=== PATIENT | female | born 2000 | race Caucasian/White ===

== ENCOUNTER 2019-11-27 20:58 | Observation (INO) | payer OTHER ==
[~2019-11-27] VITALS: Ht 160 cm; Wt 81.0 kg
--- NOTE | 2019-11-27 21:14 | PHYS DOC ---
Past Medical History Past Medical History: Anemia, Anxiety, Asthma, Depression Additional Past Medical Histor: seasonal allergies (GERALDO EDMONDS REAL ESTATE INVESTMENT ANALYST) Additional Past Surgical Histo: wisdom teeth removed (GERALDO EDMONDS REAL ESTATE INVESTMENT ANALYST) Smoking Status: Never Smoker Alcohol Use: None Drug Use: None (GERALDO EDMONDS APRN) General Adult EDM: Chief Complaint: MECHANICAL FALL HPI: HPI: Patient is a 19 year old female who arrives via EMS after being bucked off of a horse just prior to arrival. The patient states that when the horse bucked her forehead hit the back of the horse and she flew off the back of the horse. When she landed she struck the back of her head on the ground, she was not wearing a helmet. She denies any LOC. Pt states initially she was seeing black spots in both of her eyes, her nose also bled for a short period of time. She denies any nasal pain. Currently, she reports seeing spots in her left eye, headache, neck pain, low back pain, and left hip pain. Patient is vomiting on arrival and complains of nausea. She currently rates her pain a 10/10 on the pain scale and reports it is most severe in her left hip. She denies any shortness of breath, wheezing, or cough. She states that her chest hurts with inspiration. She denies abdominal pain, upper extremity pain, numbness, tingling, or weakness. Patient denies any loss of bowel or bladder control. She reports that she takes continuous control and has not had a menstrual cycle in over 4 months. EMS states that they gave the patient 4 mg of Zofran and 100 mcg of fentanyl while in route to the emergency department. (GERALDO EDMONDS REAL ESTATE INVESTMENT ANALYST) Review of Systems: Review of Systems: Constitutional: Denies fever or chills. [] Eyes: see HPI HENT: Denies nasal congestion or sore throat, see HPI [] Respiratory: Denies cough or shortness of breath. [] Cardiovascular: Denies palpitations or edema; see HPI GI: Denies abdominal pain, or diarrhea; see HPI : Denies dysuria. [] Musculoskeletal: see HPI Integument: Denies rash. [] Neurologic: See HPI Endocrine: Denies polyuria or polydipsia. [] Lymphatic: Denies swollen glands. [] Psychiatric: Denies depression or anxiety. [] (GERALDO EDMONDS APRN) Heart Score: Risk Factors: Risk Factors: DM, Current or recent (<one month) smoker, HTN, HLP, family history of CAD, obesity. Risk Scores: Score 0 - 3: 2.5% MACE over next 6 weeks - Discharge Home Score 4 - 6: 20.3% MACE over next 6 weeks - Admit for Clinical Observation Score 7 - 10: 72.7% MACE over next 6 weeks - Early Invasive Strategies (GERALDO EDMONDS APRN) Current Medications: Current Medications Medications (Trade) Dose Ordered Sig/Desiree Start Time Stop Time Status Last Admin Dose Admin Fentanyl Citrate (Fentanyl 2ml Vial) 50 mcg 1X ONCE 11/27/19 21:15 11/27/19 21:16 UNV Ondansetron HCl (Zofran) 4 mg 1X ONCE 11/27/19 21:15 11/27/19 21:16 UNV Sodium Chloride 1,000 ml @ 1,000 mls/hr 1X ONCE 11/27/19 21:15 11/27/19 22:14 UNV (GERALDO EDMONDS REAL ESTATE INVESTMENT ANALYST) Physical Exam: PE: Constitutional: Well developed, well nourished, moderate distress, non-toxic appearance. [] HENT: Normocephalic, atraumatic, bilateral external ears normal, left TM normal, oropharynx moist, no oral exudates, scant amount of blood present in the right nare without active bleeding, no obvious nasal deformity or swelling Eyes: PERRLA, EOMI, conjunctiva normal, no discharge, no nystagmus. [] Neck: Range of motion deferred; cervical spine tenderness to palpation, no obvious deformity or crepitus patient in a c-collar, no stridor. [] Cardiovascular:Heart rate regular rhythm, no murmur [] Lungs & Thorax: Bilateral breath sounds clear to auscultation, respirations even and unlabored, no retractions, no respiratory distress Abdomen: Bowel sounds normal, soft, no tenderness, no masses, no pulsatile masses. [] Skin: Warm, dry, no erythema, no rash. [] Back: Upper thoracic and diffuse lumbar bony tenderness to palpation without crepitus, step-off, or obvious deformity Extremities: Lower left extremity: Shortening with external rotation, 2+ pedal pulses, tenderness to palpation of left hip; no cyanosis, no clubbing Neurologic: Alert and oriented X 3, normal motor function, normal sensory function, no focal deficits noted. [] Psychologic: Affect normal, judgement normal, mood normal. [] (GERALDO EDMONDS APRN) PE: Constitutional: Well developed, well nourished, anxious HENT: Normocephalic, atraumatic Eyes: Conjunctiva normal, no discharge Neck: Supple Cardiovascular: Heart rate normal, regular rhythm Lungs & Thorax: No respiratory distress, equal chest rise and fall Skin: Warm, dry, no erythema, no rash Extremities: No tenderness, ROM intact, no edema Neurologic: Alert and oriented X 3, no focal deficits noted Psychologic: Affect anxious, judgment normal (ALTON WILDER DO) EKG: EKG: [] (GERALDO EDMONDS APRN) Radiology/Procedures: Radiology/Procedures: PROCEDURE: CT CHEST ABDOMEN PELVIS WO CT THORACIC SPINE RECONSTRUCT, CT CHEST ABDOMEN PELVIS WO, CT LUMBAR SPINE RECONSTRUCTION INDICATION: Reason: pain, chest, L hip pain after bucked off a horse / Spl. Instructions: / History: COMPARISON: None. TECHNIQUE: Multiple contiguous axial images were obtained throughout the chest, abdomen, and pelvis without the use of IV contrast. Axial images were reformatted into coronal and sagittal planes. Dedicated multiplanar reconstructions of the thoracic and lumbar spine were also obtained. One or more of the following dose reduction techniques were utilized: Automated exposure control (AEC), Adjustment of mA and/or kV according to patient size, Use of iterative reconstruction technique such as ASiR, CT scan done according to ALARA and image gently/image wisely. FINDINGS: The thyroid is symmetric. There is no axillary, mediastinal, or hilar adenopathy, although evaluation of the rachna is limited without IV contrast. Residual thymic tissue. The thoracic aorta diameter is normal. The cardiac size is normal. There is no pericardial effusion. The central airways are patent. Lungs are clear. No pleural abnormality. Evaluation of solid abdominal viscera is limited without the use of IV contrast. However, the liver, gallbladder, spleen, pancreas, and adrenal glands are unremarkable. The kidneys are unremarkable. There is no significant mesenteric or retroperitoneal adenopathy identified, though evaluation is limited without intravenous contrast. There is no evidence of free intraperitoneal fluid or pneumoperitoneum. Visualized portions of the bowel are grossly unremarkable. Urinary bladder is well-distended. Uterus is present. There is no significant pelvic ascites. No significant iliac or inguinal adenopathy is identified. No acute osseous abnormality. IMPRESSION: 1. No evidence of major acute thoracic injury. No abdominal solid organ injury. 2. No acute thoracic or lumbar spine fracture. No acute pelvic fracture. PROCEDURE: CT HEAD AND CERVICAL SPINE WO CT HEAD AND CERVICAL SPINE WO Date: 11/27/2019 10:06 PM Clinical Indication: pain after bucked off a horse Comparison: None. Technique: 5 mm axial tomographic images were obtained of the head without contrast. These were viewed on brain and bone windows. CT imaging of the cervical spine was performed without contrast. Coronal and sagittal reformatted images were performed. One or more of the following dose reduction techniques were utilized: Automated exposure control (AEC), Adjustment of mA and/or kV according to patient size, Use of iterative reconstruction technique such as ASiR, CT scan done according to ALARA and image gently/image wisely HEAD FINDINGS: The brain parenchyma is normal in attenuation. No intra- or extra-axial mass or fluid collection. No acute hemorrhage. The ventricles are normal in size, shape, and morphology. The gil-white matter junction is normal. The basilar cisterns are patent. The visualized paranasal sinuses are normal. The visualized portions of the orbits and globes are normal. The mastoid air cells are clear. No aggressive osseous lesion or fracture. CERVICAL SPINE FINDINGS: The cervical spine is normally aligned. No acute fracture. No aggressive lytic or blastic osseous lesion. The intervertebral disc heights are maintained. No high-grade spinal canal stenosis or neural foraminal narrowing. The thyroid gland is normal. No cervical lymphadenopathy. The visualized aerodigestive tract is unremarkable. The visualized lung apices are clear. IMPRESSION: 1. No acute intracranial process. 2. No acute osseous abnormality of the cervical spine. [] (GERALDO EDMONDS APRN) Course & Med Decision Making: Course & Med Decision Making Pertinent Labs and Imaging studies reviewed. (See chart for details) [id number]-we will admit this patient to Dr. Hull for closed head injury, int ractable nausea and vomiting, hematuria, and fall from horse. Dr. Wilder will inform Dr. Hull of the need for admission with morning report. Patient's vital signs stable. Patient remains afebrile, appears nontoxic, respirations even and unlabored. Patient will be admitted to the telemetry floor. [] (GERALDO EDMONDS APRN) Dragon Disclaimer: Dragon Disclaimer: This electronic medical record was generated, in whole or in part, using a voice recognition dictation system. (GERALDO EDMONDS APRN) Departure Departure Impression: Primary Impression: Head injury Qualified Codes: S09.90XA - Unspecified injury of head, initial encounter Additional Impressions: Hematuria Qualified Codes: R31.9 - Hematuria, unspecified Intractable nausea and vomiting Fall from horse Qualified Codes: V80.010A - Animal-rider injured by fall from or being thrown from horse in noncollision accident, initial encounter Tachycardia Disposition: ADMITTED INPATIENT Admitting Physician: MYLENE benitez) (GERALDO EDMONDS APRN) Condition: STABLE Referrals: NO PCP (PCP) Justicifation of Admission Dx: Justifications for Admission: Justification of Admission Dx: Yes Comments: trauma alert, kicked off horse, head injury, intractable n/v, hematuria (GERALDO EDMONDS APRN) Attending Signature Attending Signature I have personally interviewed and examined the patient. All charts, labs, and imaging studies were reviewed. I agree with the PA/CABLE TOWER OPERATOR's findings, exam, and plan. (ALTON WILDER DO) GERALDO EDMONDS APRN Nov 27, 2019 21:14 ALTON WILDER DO Nov 28, 2019 02:57
[2019-11-27] MEDS ORDERED: ONDANSETRON PF 4 MG/2 ML VIAL. IV ONE (21:15)
[2019-11-27] MEDS ORDERED: IV NORMAL SALINE 1000ML BAG 1,000 ML IV ONE (21:15)
[2019-11-27] MEDS ORDERED: fentaNYL PF VIAL 100 MCG/2 ML VIAL IV ONE ×2 (21:15→23:00)
[2019-11-27 21:32] LABS: BASO # 0.1 x10^3/uL (0.0-0.2); BASO % 1 % (0-3); EOS # 0.2 x10^3/uL (0.0-0.7); EOS % 2 % (0-3); HEMATOCRIT 37.7 % (36.0-47.0); HEMOGLOBIN 12.9 g/dL (12.0-15.5); LYMPH % 35 % (24-48); MEAN CORPUSCULAR HEMOGLOBIN 28 pg (25-35); MEAN CORPUSCULAR HGB CONC 34 g/dL (31-37); MEAN CORPUSCULAR VOLUME 83 fL (79-100); MONO % 8 % (0-9); NEUT # 6.2 x10^3/uL (1.8-7.7); NEUT % 54 % (31-73); PLATELET COUNT 409 x10^3/uL (140-400); RED BLOOD COUNT 4.53 x10^6/uL (3.50-5.40); RED CELL DISTRIBUTION WIDTH 13.5 % (11.5-14.5); WHITE BLOOD COUNT 11.5 x10^3/uL (4.0-11.0)
[2019-11-27 21:41] LABS: CALCIUM 8.8 mg/dL (8.5-10.1); CREATININE 1.1 mg/dL (0.6-1.0); GFR 63.3; POTASSIUM 3.9 mmol/L (3.5-5.1); PROTHROMBIN TIME PATIENT 12.5 SEC (11.7-14.0)
[2019-11-27 21:47] LABS: ALBUMIN 3.1 g/dL (3.4-5.0); ALBUMIN/GLOBULIN RATIO 0.8 (1.0-1.7); TOTAL BILIRUBIN 0.4 mg/dL (0.2-1.0); TOTAL PROTEIN 7.2 g/dL (6.4-8.2)
[2019-11-27 21:55] LABS: PREG TEST PT QUAL NEGATIVE (NEG)
--- NOTE | 2019-11-27 22:25 | RAD ---
CT HEAD AND CERVICAL SPINE WO Date: 11/27/2019 10:06 PM Clinical Indication: pain after bucked off a horse Comparison: None. Technique: 5 mm axial tomographic images were obtained of the head without contrast. These were viewed on brain and bone windows. CT imaging of the cervical spine was performed without contrast. Coronal and sagittal reformatted images were performed. One or more of the following dose reduction techniques were utilized: Automated exposure control (AEC), Adjustment of mA and/or kV according to patient size, Use of iterative reconstruction technique such as ASiR, CT scan done according to ALARA and image gently/image wisely HEAD FINDINGS: The brain parenchyma is normal in attenuation. No intra- or extra-axial mass or fluid collection. No acute hemorrhage. The ventricles are normal in size, shape, and morphology. The gil-white matter junction is normal. The basilar cisterns are patent. The visualized paranasal sinuses are normal. The visualized portions of the orbits and globes are normal. The mastoid air cells are clear. No aggressive osseous lesion or fracture. CERVICAL SPINE FINDINGS: The cervical spine is normally aligned. No acute fracture. No aggressive lytic or blastic osseous lesion. The intervertebral disc heights are maintained. No high-grade spinal canal stenosis or neural foraminal narrowing. The thyroid gland is normal. No cervical lymphadenopathy. The visualized aerodigestive tract is unremarkable. The visualized lung apices are clear. IMPRESSION: 1. No acute intracranial process. 2. No acute osseous abnormality of the cervical spine. Electronically signed by: Malachi Celaya MD (11/27/2019 10:23 PM) [id number]
[2019-11-27] MEDS ORDERED: PROCHLORPERAZINE 10 MG/2 ML VIAL. IV ONE (22:30)
--- NOTE | 2019-11-27 22:44 | RAD ---
CT THORACIC SPINE RECONSTRUCT, CT CHEST ABDOMEN PELVIS WO, CT LUMBAR SPINE RECONSTRUCTION INDICATION: Reason: pain, chest, L hip pain after bucked off a horse / Spl. Instructions: / History: COMPARISON: None. TECHNIQUE: Multiple contiguous axial images were obtained throughout the chest, abdomen, and pelvis without the use of IV contrast. Axial images were reformatted into coronal and sagittal planes. Dedicated multiplanar reconstructions of the thoracic and lumbar spine were also obtained. One or more of the following dose reduction techniques were utilized: Automated exposure control (AEC), Adjustment of mA and/or kV according to patient size, Use of iterative reconstruction technique such as ASiR, CT scan done according to ALARA and image gently/image wisely. FINDINGS: The thyroid is symmetric. There is no axillary, mediastinal, or hilar adenopathy, although evaluation of the rachna is limited without IV contrast. Residual thymic tissue. The thoracic aorta diameter is normal. The cardiac size is normal. There is no pericardial effusion. The central airways are patent. Lungs are clear. No pleural abnormality. Evaluation of solid abdominal viscera is limited without the use of IV contrast. However, the liver, gallbladder, spleen, pancreas, and adrenal glands are unremarkable. The kidneys are unremarkable. There is no significant mesenteric or retroperitoneal adenopathy identified, though evaluation is limited without intravenous contrast. There is no evidence of free intraperitoneal fluid or pneumoperitoneum. Visualized portions of the bowel are grossly unremarkable. Urinary bladder is well-distended. Uterus is present. There is no significant pelvic ascites. No significant iliac or inguinal adenopathy is identified. No acute osseous abnormality. IMPRESSION: 1. No evidence of major acute thoracic injury. No abdominal solid organ injury. 2. No acute thoracic or lumbar spine fracture. No acute pelvic fracture. Electronically signed by: Malachi Celaya MD (11/27/2019 10:41 PM) [id number]
[2019-11-27 23:09] LABS: BILIRUBIN,URINE NEGATIVE (NEG); CLARITY,URINE CLEAR; COLOR,URINE YELLOW; NITRITE,URINE NEGATIVE (NEG); PH,URINE 6.5 (<5.0-8.0); PROTEIN,URINE NEGATIVE (NEG-TRACE); UROBILINOGEN,URINE 0.2 mg/dL (0.2 mg/dL)
[2019-11-27 23:17] LABS: BACTERIA,URINE MODERATE /HPF (0-FEW); RBC,URINE 20-40 /HPF (0-2); SQUAMOUS EPITHELIAL CELL,UR MOD /LPF; WBC,URINE >40 /HPF (0-4)
[2019-11-27] MEDS ORDERED: fentaNYL PF VIAL 100 MCG/2 ML VIAL IV PRN (23:30)
[2019-11-27] MEDS ORDERED: ONDANSETRON PF 4 MG/2 ML VIAL. IV PRN (23:30)
[2019-11-27] MEDS ORDERED: IV NORMAL SALINE 500ML BAG 500 ML IV ONE (23:30)
[2019-11-27] MEDS: IV NORMAL SALINE 1000ML BAG 1,000 ML IV SCH (23:45)
[2019-11-28] MEDS ORDERED: IV NORMAL SALINE 1000ML BAG 1,000 ML IV ONE (00:30)
[2019-11-28] MEDS ORDERED: diphenhydrAMINE 50 MG/ML VIAL IVP ONE (00:30)
[2019-11-28] MEDS ORDERED: CITA10TA8 PO (02:13)
[2019-11-28] MEDS ORDERED: NORE1TAB27 PO (02:16)
[2019-11-28] MEDS ORDERED: ALBU2.5V8 IH (02:16)
[2019-11-28] MEDS ORDERED: FLUT9.9S NS (02:16)
[2019-11-28 02:38] VITALS: BP 105/57
[2019-11-28 07:00] VITALS: BP 106/54
[2019-11-28] MEDS: IV NORMAL SALINE 1000ML BAG 1,000 ML IV SCH ×2 (07:45→15:45)
--- NOTE | 2019-11-28 08:29 | PDOC2 ---
[facility] 11/28/19 0829: CONSULT Date of Consult Date of Consult DATE: 11/28/19 TIME: 08:22 Reason for Consult Reason for Consult: trauma, head injury, fall from horse Referring Physician Referring Physician: ER Identification/Chief Complaint Chief Complaint n/v, vision changes, pain Source Source: Chart review, Patient History of Present Illness Reason for Visit: Bucked from horse, thrown foward and hit forehead, then fell back off horse and hit back of head on ground. No helmet. No LOC. Did initially have vision spots and n/v. Currently both have resolved. Main tender spot is left hip area. No further hematuria Past Medical History Pulmonary: Asthma, Bronchitis Psych: Anxiety, Depression, Panic Past Surgical History Past Surgical History: No pertinent history Family History Family History: Other (noncontributory to current illness ) Social History No ALCOHOL: none Drugs: None Lives: with Family Current Problem List Problem List Problems Medical Problems: (1) Fall from horse Status: Acute (2) Head injury Status: Acute (3) Hematuria Status: Acute (4) Intractable nausea and vomiting Status: Acute (5) Tachycardia Status: Acute Current Medications Current Medications Current Medications Sodium Chloride 1,000 ml @ 1,000 mls/hr 1X ONCE IV Last administered on 11/27/19at 21:28; Start 11/27/19 at 21:15; Stop 11/27/19 at 22:14; Status DC Fentanyl Citrate (Fentanyl 2ml Vial) 50 mcg 1X ONCE IV Last administered on 11/27/19at 21:27; Start 11/27/19 at 21:15; Stop 11/27/19 at 21:36; Status DC Ondansetron HCl (Zofran) 4 mg 1X ONCE IV Last administered on 11/27/19at 21:00; Start 11/27/19 at 21:15; Stop 11/27/19 at 21:36; Status DC Prochlorperazine Edisylate (Compazine) 10 mg 1X ONCE IV Last administered on 11/27/19at 22:22; Start 11/27/19 at 22:30; Stop 11/27/19 at 22:31; Status DC Fentanyl Citrate (Fentanyl 2ml Vial) 50 mcg 1X ONCE IV Last administered on 11/27/19at 22:49; Start 11/27/19 at 23:00; Stop 11/27/19 at 23:01; Status DC Sodium Chloride 500 ml @ 500 mls/hr 1X ONCE IV Last administered on 11/27/19at 23:15; Start 11/27/19 at 23:30; Stop 11/28/19 at 00:29; Status DC Ondansetron HCl (Zofran) 4 mg PRN Q8HRS PRN IV NAUSEA/VOMITING 1ST CHOICE; Start 11/27/19 at 23:30; Stop 11/28/19 at 23:29 Fentanyl Citrate (Fentanyl 2ml Vial) 50 mcg PRN Q1HR PRN IV SEVERE PAIN 7-10; Start 11/27/19 at 23:30; Stop 11/28/19 at 23:29 Sodium Chloride 1,000 ml @ 125 mls/hr Q8H IV Last administered on 11/28/19at 07:45; Start 11/27/19 at 23:45; Stop 11/28/19 at 23:44 Lorazepam (Ativan Inj) 0.5 mg 1X ONCE IV Last administered on 11/27/19at 23:45; Start 11/27/19 at 23:45; Stop 11/27/19 at 23:46; Status DC Lorazepam (Ativan Inj) 0.5 mg 1X ONCE IV Last administered on 11/28/19at 00:11; Start 11/27/19 at 23:45; Stop 11/27/19 at 23:46; Status DC Diphenhydramine HCl (Benadryl) 25 mg 1X ONCE IVP Last administered on 11/28/19at 00:33; Start 11/28/19 at 00:30; Stop 11/28/19 at 00:31; Status DC Sodium Chloride 1,000 ml @ 1,000 mls/hr 1X ONCE IV ; Start 11/28/19 at 00:30; Stop 11/28/19 at 00:25; Status DC Active Scripts Active Reported Proair Hfa Inhaler (Albuterol Sulfate) 8.5 Gm Hfa.aer.ad 2 Puff IH PRN Q4-6HRS PRN 21 Days Flonase Allergy Relief (Fluticasone Propionate) 9.9 Ml [place].susp 2 Sprays NS DAILY Junel Fe 1 Mg-20 Mcg Tablet (Noreth A-Et Estra/Fe Fumarate) 1 Each Tablet 1 Tab PO DAILY Celexa (Citalopram Hydrobromide) 10 Mg Tablet 10 Mg PO DAILY Allergies Allergies: Coded Allergies: iodine (Verified Allergy, Severe, 11/27/19) shellfish derived (Verified Allergy, Severe, 11/27/19) aripiprazole (Verified Allergy, Intermediate, 11/27/19) ROS General: YES: Fatigue; No: Chills, Other (fevers ) PSYCHOLOGICAL ROS: No: Anxiety, Depression Eyes: No Blurry vision, No Double vision, No Photophobia HEENT: No: Heacaches, Hearing change, Sore Throat Hematological and Lymphatic: YES: Blood Clots; No: Bleeding Problems Respiratory: No: Cough, Shortness of breath Cardiovascular: No Chest Pain, No Palpitations Gastrointestinal: No Nausea, No Vomiting, No Abdominal Pain Genitourinary: No Dysuria, No Hematuria Musculoskeletal: Yes Joint Pain (left hip) Neurological: No Impaired Coord/balance, No Numbness/Tingling Skin: Yes Other (scrapes to arm left ); No Pruritus Physical Exam General: Alert, Oriented X3, Cooperative HEENT: Atraumatic, PERRLA, EOMI, Mucous membr. moist/pink Lungs: Clear to auscultation, Normal air movement Heart: Normal S1, Normal S2, Other (tachy) Abdomen: Soft, No tenderness, No masses Extremities: No clubbing, No cyanosis, Normal pulses Skin: Other (rash from fall to left arm) Neuro: Normal speech, Strength at 5/5 X4 ext, Normal tone, Sensation intact Psych/Mental Status: Mental status NL, Mood NL MUSCULOSKELETAL: No deformity, Other (left hip tenderness) Vitals VITALS Vital Signs Date Time Temp Pulse Resp B/P (MAP) Pulse Ox O2 Delivery O2 Flow Rate FiO2 11/28/19 07:00 98.5 111 16 106/54 (71) 99 Room Air 98.5 Labs Labs Laboratory Tests Test 11/27/19 21:14 11/27/19 23:00 White Blood Count 11.5 x10^3/uL (4.0-11.0) Red Blood Count 4.53 x10^6/uL (3.50-5.40) Hemoglobin 12.9 g/dL (12.0-15.5) Hematocrit 37.7 % (36.0-47.0) Mean Corpuscular Volume 83 fL (79-100) Mean Corpuscular Hemoglobin 28 pg (25-35) Mean Corpuscular Hemoglobin Concent 34 g/dL (31-37) Red Cell Distribution Width 13.5 % (11.5-14.5) Platelet Count 409 x10^3/uL (140-400) Neutrophils (%) (Auto) 54 % (31-73) Lymphocytes (%) (Auto) 35 % (24-48) Monocytes (%) (Auto) 8 % (0-9) Eosinophils (%) (Auto) 2 % (0-3) Basophils (%) (Auto) 1 % (0-3) Neutrophils # (Auto) 6.2 x10^3/uL (1.8-7.7) Lymphocytes # (Auto) 4.0 x10^3/uL (1.0-4.8) Monocytes # (Auto) 1.0 x10^3/uL (0.0-1.1) Eosinophils # (Auto) 0.2 x10^3/uL (0.0-0.7) Basophils # (Auto) 0.1 x10^3/uL (0.0-0.2) Prothrombin Time 12.5 SEC (11.7-14.0) Prothromb Time International Ratio 1.0 (0.8-1.1) Activated Partial Thromboplast Time 25 SEC (24-38) Sodium Level 139 mmol/L (136-145) Potassium Level 3.9 mmol/L (3.5-5.1) Chloride Level 103 mmol/L (98-107) Carbon Dioxide Level 23 mmol/L (21-32) Anion Gap 13 (6-14) Blood Urea Nitrogen 12 mg/dL (7-20) Creatinine 1.1 mg/dL (0.6-1.0) Estimated GFR (Cockcroft-Gault) 63.3 BUN/Creatinine Ratio 11 (6-20) Glucose Level 93 mg/dL (70-99) Calcium Level 8.8 mg/dL (8.5-10.1) Magnesium Level 2.0 mg/dL (1.8-2.4) Total Bilirubin 0.4 mg/dL (0.2-1.0) Aspartate Amino Transf (AST/SGOT) 38 U/L (15-37) Alanine Aminotransferase (ALT/SGPT) 36 U/L (14-59) Alkaline Phosphatase 83 U/L (46-116) Total Protein 7.2 g/dL (6.4-8.2) Albumin 3.1 g/dL (3.4-5.0) Albumin/Globulin Ratio 0.8 (1.0-1.7) Serum Test, Qualitative Negative (NEG) Urine Collection Type Unknown Urine Color Yellow Urine Clarity Clear Urine pH 6.5 (<5.0-8.0) Urine Specific [place] 1.010 (1.000-1.030) Urine Protein Negative mg/dL (NEG-TRACE) Urine Glucose (UA) Negative mg/dL (NEG) Urine Ketones (Stick) Negative mg/dL (NEG) Urine Blood Large (NEG) Urine Nitrite Negative (NEG) Urine Bilirubin Negative (NEG) Urine Urobilinogen Dipstick 0.2 mg/dL (0.2 mg/dL) Urine Leukocyte Esterase Small (NEG) Urine RBC 20-40 /HPF (0-2) Urine WBC >40 /HPF (0-4) Urine Squamous Epithelial Cells Mod /LPF Urine Bacteria Moderate /HPF (0-FEW) Urine Mucus Slight /LPF Laboratory Tests Test 11/27/19 21:14 11/27/19 23:00 White Blood Count 11.5 x10^3/uL (4.0-11.0) Red Blood Count 4.53 x10^6/uL (3.50-5.40) Hemoglobin 12.9 g/dL (12.0-15.5) Hematocrit 37.7 % (36.0-47.0) Mean Corpuscular Volume 83 fL (79-100) Mean Corpuscular Hemoglobin 28 pg (25-35) Mean Corpuscular Hemoglobin Concent 34 g/dL (31-37) Red Cell Distribution Width 13.5 % (11.5-14.5) Platelet Count 409 x10^3/uL (140-400) Neutrophils (%) (Auto) 54 % (31-73) Lymphocytes (%) (Auto) 35 % (24-48) Monocytes (%) (Auto) 8 % (0-9) Eosinophils (%) (Auto) 2 % (0-3) Basophils (%) (Auto) 1 % (0-3) Neutrophils # (Auto) 6.2 x10^3/uL (1.8-7.7) Lymphocytes # (Auto) 4.0 x10^3/uL (1.0-4.8) Monocytes # (Auto) 1.0 x10^3/uL (0.0-1.1) Eosinophils # (Auto) 0.2 x10^3/uL (0.0-0.7) Basophils # (Auto) 0.1 x10^3/uL (0.0-0.2) Prothrombin Time 12.5 SEC (11.7-14.0) Prothromb Time International Ratio 1.0 (0.8-1.1) Activated Partial Thromboplast Time 25 SEC (24-38) Sodium Level 139 mmol/L (136-145) Potassium Level 3.9 mmol/L (3.5-5.1) Chloride Level 103 mmol/L (98-107) Carbon Dioxide Level 23 mmol/L (21-32) Anion Gap 13 (6-14) Blood Urea Nitrogen 12 mg/dL (7-20) Creatinine 1.1 mg/dL (0.6-1.0) Estimated GFR (Cockcroft-Gault) 63.3 BUN/Creatinine Ratio 11 (6-20) Glucose Level 93 mg/dL (70-99) Calcium Level 8.8 mg/dL (8.5-10.1) Magnesium Level 2.0 mg/dL (1.8-2.4) Total Bilirubin 0.4 mg/dL (0.2-1.0) Aspartate Amino Transf (AST/SGOT) 38 U/L (15-37) Alanine Aminotransferase (ALT/SGPT) 36 U/L (14-59) Alkaline Phosphatase 83 U/L (46-116) Total Protein 7.2 g/dL (6.4-8.2) Albumin 3.1 g/dL (3.4-5.0) Albumin/Globulin Ratio 0.8 (1.0-1.7) Serum Test, Qualitative Negative (NEG) Urine Collection Type Unknown Urine Color Yellow Urine Clarity Clear Urine pH 6.5 (<5.0-8.0) Urine Specific [place] 1.010 (1.000-1.030) Urine Protein Negative mg/dL (NEG-TRACE) Urine Glucose (UA) Negative mg/dL (NEG) Urine Ketones (Stick) Negative mg/dL (NEG) Urine Blood Large (NEG) Urine Nitrite Negative (NEG) Urine Bilirubin Negative (NEG) Urine Urobilinogen Dipstick 0.2 mg/dL (0.2 mg/dL) Urine Leukocyte Esterase Small (NEG) Urine RBC 20-40 /HPF (0-2) Urine WBC >40 /HPF (0-4) Urine Squamous Epithelial Cells Mod /LPF Urine Bacteria Moderate /HPF (0-FEW) Urine Mucus Slight /LPF Assessment/Plan Assessment/Plan trauma, fall from horse concussion appears improved this Am no surgical recommendations medical therapy EZIO BOLIVAR MD 11/28/19 1245: CONSULT Assessment/Plan Assessment/Plan as above no gen surg needs will sign off please call if needed Thanks KRISTIN MARS APRN Nov 28, 2019 08:29 EZIO BOLIVAR MD Nov 28, 2019 12:45
[2019-11-28] MEDS ORDERED: ALBUTEROL SULFATE 2.5 MG/3 ML NEBU. CONT NEB PRN (08:30)
[2019-11-28] MEDS ORDERED: FLUTICASONE 50MCG/NASAL SPRAY 16GM BOTTLE. NS SCH (09:00)
[2019-11-28] MEDS ORDERED: FE FUMARATE PO SCH (09:00)
[2019-11-28] MEDS ORDERED: CITALOPRAM 10 MG TABLET. PO SCH (09:00)
[2019-11-28] MEDS ORDERED: NORETH A ET ESTRA PO SCH (09:00)
[2019-11-28] MEDS ORDERED: ACETAMINOPHEN 325 MG TABLET. PO PRN (09:45)
[2019-11-28 09:53] VITALS: BP 105/59
--- NOTE | 2019-11-28 10:10 | PDOC1 ---
History and Physical Date of Admission Date of Admission DATE: 11/28/19 TIME: 10:08 Identification/Chief Complaint Chief Complaint 19 year old female who arrives via EMS after being bucked off of her horse just prior to arrival. //horse bucked her forehead hit the back of the horse and she flew off the back of the horse. When she landed she struck the back of her head on the ground, she was not wearing a helmet. She denies any LOC. Pt states initially she was seeing black spots in both of her eyes, her nose also bled for a short period of time. She denies any nasal pain. in ER, she reports seeing spots in her left eye, headache, neck pain, low back pain, and left hip pain. Patient WAS vomiting on arrival a She currently rates her pain a 3 /10 on the pain scale and reports it is most severe in her left hip. She denies any shortness of breath, wheezing, or cough. HEADACHE HAS RESOLVED, She is feeling much better Past Medical History Past Medical History Past Medical History Past Medical History: Anemia, Anxiety, Asthma, Depression Additional Past Medical Histor: seasonal allergies Additional Past Surgical Histo: wisdom teeth removed Smoking Status: Never Smoker Alcohol Use: None Drug Use: None fhx OBESITY Pulmonary: Asthma, Bronchitis Psych: Anxiety, Depression, Panic Past Surgical History Past Surgical History: No pertinent history Family History Family History: Other (noncontributory to current illness ) Social History Smoke: No ALCOHOL: none Drugs: None Current Problem List Problem List Problems Medical Problems: (1) Fall from horse Status: Acute (2) Head injury Status: Acute (3) Hematuria Status: Acute (4) Intractable nausea and vomiting Status: Acute (5) Tachycardia Status: Acute Current Medications Current Medications Current Medications Sodium Chloride 1,000 ml @ 1,000 mls/hr 1X ONCE IV Last administered on 11/27/19at 21:28; Start 11/27/19 at 21:15; Stop 11/27/19 at 22:14; Status DC Fentanyl Citrate (Fentanyl 2ml Vial) 50 mcg 1X ONCE IV Last administered on 11/27/19at 21:27; Start 11/27/19 at 21:15; Stop 11/27/19 at 21:36; Status DC Ondansetron HCl (Zofran) 4 mg 1X ONCE IV Last administered on 11/27/19at 21:00; Start 11/27/19 at 21:15; Stop 11/27/19 at 21:36; Status DC Prochlorperazine Edisylate (Compazine) 10 mg 1X ONCE IV Last administered on 11/27/19at 22:22; Start 11/27/19 at 22:30; Stop 11/27/19 at 22:31; Status DC Fentanyl Citrate (Fentanyl 2ml Vial) 50 mcg 1X ONCE IV Last administered on 11/27/19at 22:49; Start 11/27/19 at 23:00; Stop 11/27/19 at 23:01; Status DC Sodium Chloride 500 ml @ 500 mls/hr 1X ONCE IV Last administered on 11/27/19at 23:15; Start 11/27/19 at 23:30; Stop 11/28/19 at 00:29; Status DC Ondansetron HCl (Zofran) 4 mg PRN Q8HRS PRN IV NAUSEA/VOMITING 1ST CHOICE; Start 11/27/19 at 23:30; Stop 11/28/19 at 23:29 Fentanyl Citrate (Fentanyl 2ml Vial) 50 mcg PRN Q1HR PRN IV SEVERE PAIN 7-10; Start 11/27/19 at 23:30; Stop 11/28/19 at 23:29 Sodium Chloride 1,000 ml @ 125 mls/hr Q8H IV Last administered on 11/28/19at 07:45; Start 11/27/19 at 23:45; Stop 11/28/19 at 23:44 Lorazepam (Ativan Inj) 0.5 mg 1X ONCE IV Last administered on 11/27/19at 23:45; Start 11/27/19 at 23:45; Stop 11/27/19 at 23:46; Status DC Lorazepam (Ativan Inj) 0.5 mg 1X ONCE IV Last administered on 11/28/19at 00:11; Start 11/27/19 at 23:45; Stop 11/27/19 at 23:46; Status DC Diphenhydramine HCl (Benadryl) 25 mg 1X ONCE IVP Last administered on 11/28/19at 00:33; Start 11/28/19 at 00:30; Stop 11/28/19 at 00:31; Status DC Sodium Chloride 1,000 ml @ 1,000 mls/hr 1X ONCE IV ; Start 11/28/19 at 00:30; Stop 11/28/19 at 00:25; Status DC Albuterol Sulfate (Ventolin Neb Soln) 2.5 mg PRN Q4HRS PRN CONT NEB wheezing; Start 11/28/19 at 08:30 Citalopram Hydrobromide (CeleXA) 10 mg DAILY PO Last administered on 11/28/19at 09:17; Start 11/28/19 at 09:00 Fluticasone Propionate (Flonase) 2 spray DAILY NS Last administered on 11/28/19at 09:20; Start 11/28/19 at 09:00 Non-Formulary Medication (Noreth A-Et Estra/Fe Fumarate (Junel Fe 1 Mg-20 Mcg Tablet)) 1 tab DAILY PO ; Start 11/28/19 at 09:00; Status UNV Acetaminophen (Tylenol) 650 mg PRN Q6HRS PRN PO MILD PAIN / TEMP > 100.3'F Last administered on 11/28/19at 09:50; Start 11/28/19 at 09:45 Active Scripts Active Reported Proair Hfa Inhaler (Albuterol Sulfate) 8.5 Gm Hfa.aer.ad 2 Puff IH PRN Q4-6HRS PRN 21 Days Flonase Allergy Relief (Fluticasone Propionate) 9.9 Ml [place].susp 2 Sprays NS DAILY Junel Fe 1 Mg-20 Mcg Tablet (Noreth A-Et Estra/Fe Fumarate) 1 Each Tablet 1 Tab PO DAILY Celexa (Citalopram Hydrobromide) 10 Mg Tablet 10 Mg PO DAILY Allergies Allergies: Coded Allergies: iodine (Verified Allergy, Severe, 11/27/19) shellfish derived (Verified Allergy, Severe, 11/27/19) aripiprazole (Verified Allergy, Intermediate, 11/27/19) ROS General: No: Chills, Night Sweats, Fatigue, Malaise, Appetite, Other PSYCHOLOGICAL ROS: No: Anxiety, Behavioral Disorder, Concentration difficultie, Decreased libido, Depression, Disorientation, Hallucinations, Hostility, Irritablity, Memory difficulties, Mood Swings, Obsessive thoughts, Physical abuse, Sexual abuse, Sleep disturbances, Suicidal ideation, Other Eyes: Yes Blurry vision; No Decreased vision, No Double vision, No Dry eyes, No Excessive tearing, No Eye Pain, No Itchy Eyes, No Loss of vision, No Photophobia, No Scotomata, No Uses contacts, No Uses glasses, No Other HEENT: YES: Other (headache resolved); No: Heacaches, Visual Changes, Hearing change, Nasal congestion, Nasal discharge, Oral lesions, Sinus pain, Sore Throat, Epistaxis, Sneezing, Snoring, Tinnitus, Vertigo, Vocal changes ALLERGY AND IMMUNOLOGY: No: Hives, Insect Bite Sensitivity, Itchy/Watery Eyes, Nasal Congestion, Post Nasal Drip, Seasonal Allergies, Other Hematological and Lymphatic: No: Bleeding Problems, Blood Clots, Blood Transfusions, Brusing, Night Sweats, Pallor, Swollen Lymph Nodes, Other ENDOCRINE: No: Breast Changes, Galactorrhea, Hair Pattern Changes, Hot Flashes, Malaise/lethargy, Mood Swings, Palpitations, Polydipsia/polyuria, Skin Changes, Temperature Intolerance, Unexpected Weight Changes, Other Respiratory: No: Cough, Hemoptysis, Orthopnea, Pleuritic Pain, Shortness of breath, SOB with excertion, Sputum Changes, Stridor, Tachypnea, Wheezing, Other Cardiovascular: No Chest Pain, No Palpitations, No Orthopnea, No Paroxysmal Noc. Dyspnea, No Edema, No Lt Headedness, No Other Gastrointestinal: No Nausea, No Vomiting, No Abdominal Pain, No Diarrhea, No Constipation, No Melena, No Hematochezia, No Other Genitourinary: No Dysuria, No Frequency, No Incontinence, No Hematuria, No Retention, No Discharge, No Urgency, No Pain, No Flank Pain, No Other, No , No , No , No , No , No , No Musculoskeletal: Yes Gait Disturbance, Yes Joint Pain (left hip) Neurological: Yes Gait Disturbance; No Behavorial Changes, No Bowel/Bladder ControlChng, No Confusion, No Dizziness, No Headaches, No Impaired Coord/balance, No Memory Loss, No Numb ness/Tingling, No Seizures, No Speech Problems, No Tremors, No Visual Changes, No Weakness, No Other Skin: No Dry Skin, No Eczema, No Hair Changes, No Lumps, No Mole Changes, No Mottling, No Nail Changes, No Pruritus, No Rash, No Skin Lesion Changes, No Other, No Acne Physical Exam Physical Exam finger to nose without dysmetria, rhomberg normal General: Alert, Oriented X3, Cooperative, No acute distress HEENT: Atraumatic, PERRLA, EOMI, Mucous membr. moist/pink Lungs: Clear to auscultation, Normal air movement Heart: S1S2, RRR, no thrills, no gallops, no murmurs Cardiovascular: S1, S2 Breasts: Not examined Abdomen: Normal bowel sounds, Soft, No tenderness, No hepatosplenomegaly Rectal Exam: not examined PELVIC: Examination not indicated Extremities: No cyanosis Skin: No breakdown, No significant lesion Neuro: Normal gait, Normal speech, Strength at 5/5 X4 ext, Normal tone, Sensation intact, Cranial nerves 3-12 NL Psych/Mental Status: Mental status NL, Mood NL Vitals Vitals Vital Signs Date Time Temp Pulse Resp B/P (MAP) Pulse Ox O2 Delivery O2 Flow Rate FiO2 11/28/19 09:53 98.7 102 16 105/59 (74) 98 Room Air 98.7 Labs Labs Laboratory Tests Test 11/27/19 21:14 11/27/19 23:00 White Blood Count 11.5 x10^3/uL (4.0-11.0) Red Blood Count 4.53 x10^6/uL (3.50-5.40) Hemoglobin 12.9 g/dL (12.0-15.5) Hematocrit 37.7 % (36.0-47.0) Mean Corpuscular Volume 83 fL (79-100) Mean Corpuscular Hemoglobin 28 pg (25-35) Mean Corpuscular Hemoglobin Concent 34 g/dL (31-37) Red Cell Distribution Width 13.5 % (11.5-14.5) Platelet Count 409 x10^3/uL (140-400) Neutrophils (%) (Auto) 54 % (31-73) Lymphocytes (%) (Auto) 35 % (24-48) Monocytes (%) (Auto) 8 % (0-9) Eosinophils (%) (Auto) 2 % (0-3) Basophils (%) (Auto) 1 % (0-3) Neutrophils # (Auto) 6.2 x10^3/uL (1.8-7.7) Lymphocytes # (Auto) 4.0 x10^3/uL (1.0-4.8) Monocytes # (Auto) 1.0 x10^3/uL (0.0-1.1) Eosinophils # (Auto) 0.2 x10^3/uL (0.0-0.7) Basophils # (Auto) 0.1 x10^3/uL (0.0-0.2) Prothrombin Time 12.5 SEC (11.7-14.0) Prothromb Time International Ratio 1.0 (0.8-1.1) Activated Partial Thromboplast Time 25 SEC (24-38) Sodium Level 139 mmol/L (136-145) Potassium Level 3.9 mmol/L (3.5-5.1) Chloride Level 103 mmol/L (98-107) Carbon Dioxide Level 23 mmol/L (21-32) Anion Gap 13 (6-14) Blood Urea Nitrogen 12 mg/dL (7-20) Creatinine 1.1 mg/dL (0.6-1.0) Estimated GFR (Cockcroft-Gault) 63.3 BUN/Creatinine Ratio 11 (6-20) Glucose Level 93 mg/dL (70-99) Calcium Level 8.8 mg/dL (8.5-10.1) Magnesium Level 2.0 mg/dL (1.8-2.4) Total Bilirubin 0.4 mg/dL (0.2-1.0) Aspartate Amino Transf (AST/SGOT) 38 U/L (15-37) Alanine Aminotransferase (ALT/SGPT) 36 U/L (14-59) Alkaline Phosphatase 83 U/L (46-116) Total Protein 7.2 g/dL (6.4-8.2) Albumin 3.1 g/dL (3.4-5.0) Albumin/Globulin Ratio 0.8 (1.0-1.7) Serum Test, Qualitative Negative (NEG) Urine Collection Type Unknown Urine Color Yellow Urine Clarity Clear Urine pH 6.5 (<5.0-8.0) Urine Specific [place] 1.010 (1.000-1.030) Urine Protein Negative mg/dL (NEG-TRACE) Urine Glucose (UA) Negative mg/dL (NEG) Urine Ketones (Stick) Negative mg/dL (NEG) Urine Blood Large (NEG) Urine Nitrite Negative (NEG) Urine Bilirubin Negative (NEG) Urine Urobilinogen Dipstick 0.2 mg/dL (0.2 mg/dL) Urine Leukocyte Esterase Small (NEG) Urine RBC 20-40 /HPF (0-2) Urine WBC >40 /HPF (0-4) Urine Squamous Epithelial Cells Mod /LPF Urine Bacteria Moderate /HPF (0-FEW) Urine Mucus Slight /LPF Laboratory Tests Test 11/27/19 21:14 11/27/19 23:00 White Blood Count 11.5 x10^3/uL (4.0-11.0) Red Blood Count 4.53 x10^6/uL (3.50-5.40) Hemoglobin 12.9 g/dL (12.0-15.5) Hematocrit 37.7 % (36.0-47.0) Mean Corpuscular Volume 83 fL (79-100) Mean Corpuscular Hemoglobin 28 pg (25-35) Mean Corpuscular Hemoglobin Concent 34 g/dL (31-37) Red Cell Distribution Width 13.5 % (11.5-14.5) Platelet Count 409 x10^3/uL (140-400) Neutrophils (%) (Auto) 54 % (31-73) Lymphocytes (%) (Auto) 35 % (24-48) Monocytes (%) (Auto) 8 % (0-9) Eosinophils (%) (Auto) 2 % (0-3) Basophils (%) (Auto) 1 % (0-3) Neutrophils # (Auto) 6.2 x10^3/uL (1.8-7.7) Lymphocytes # (Auto) 4.0 x10^3/uL (1.0-4.8) Monocytes # (Auto) 1.0 x10^3/uL (0.0-1.1) Eosinophils # (Auto) 0.2 x10^3/uL (0.0-0.7) Basophils # (Auto) 0.1 x10^3/uL (0.0-0.2) Prothrombin Time 12.5 SEC (11.7-14.0) Prothromb Time International Ratio 1.0 (0.8-1.1) Activated Partial Thromboplast Time 25 SEC (24-38) Sodium Level 139 mmol/L (136-145) Potassium Level 3.9 mmol/L (3.5-5.1) Chloride Level 103 mmol/L (98-107) Carbon Dioxide Level 23 mmol/L (21-32) Anion Gap 13 (6-14) Blood Urea Nitrogen 12 mg/dL (7-20) Creatinine 1.1 mg/dL (0.6-1.0) Estimated GFR (Cockcroft-Gault) 63.3 BUN/Creatinine Ratio 11 (6-20) Glucose Level 93 mg/dL (70-99) Calcium Level 8.8 mg/dL (8.5-10.1) Magnesium Level 2.0 mg/dL (1.8-2.4) Total Bilirubin 0.4 mg/dL (0.2-1.0) Aspartate Amino Transf (AST/SGOT) 38 U/L (15-37) Alanine Aminotransferase (ALT/SGPT) 36 U/L (14-59) Alkaline Phosphatase 83 U/L (46-116) Total Protein 7.2 g/dL (6.4-8.2) Albumin 3.1 g/dL (3.4-5.0) Albumin/Globulin Ratio 0.8 (1.0-1.7) Serum Test, Qualitative Negative (NEG) Urine Collection Type Unknown Urine Color Yellow Urine Clarity Clear Urine pH 6.5 (<5.0-8.0) Urine Specific [place] 1.010 (1.000-1.030) Urine Protein Negative mg/dL (NEG-TRACE) Urine Glucose (UA) Negative mg/dL (NEG) Urine Ketones (Stick) Negative mg/dL (NEG) Urine Blood Large (NEG) Urine Nitrite Negative (NEG) Urine Bilirubin Negative (NEG) Urine Urobilinogen Dipstick 0.2 mg/dL (0.2 mg/dL) Urine Leukocyte Esterase Small (NEG) Urine RBC 20-40 /HPF (0-2) Urine WBC >40 /HPF (0-4) Urine Squamous Epithelial Cells Mod /LPF Urine Bacteria Moderate /HPF (0-FEW) Urine Mucus Slight /LPF Images Images CT THORACIC SPINE RECONSTRUCT, CT CHEST ABDOMEN PELVIS WO, CT LUMBAR SPINE RECONSTRUCTION INDICATION: Reason: pain, chest, L hip pain after bucked off a horse / Spl. Instructions: / History: COMPARISON: None. TECHNIQUE: Multiple contiguous axial images were obtained throughout the chest, abdomen, and pelvis without the use of IV contrast. Axial images were reformatted into coronal and sagittal planes. Dedicated multiplanar reconstructions of the thoracic and lumbar spine were also obtained. One or more of the following dose reduction techniques were utilized: Automated exposure control (AEC), Adjustment of mA and/or kV according to patient size, Use of iterative reconstruction technique such as ASiR, CT scan done according to ALARA and image gently/image wisely. FINDINGS: The thyroid is symmetric. There is no axillary, mediastinal, or hilar adenopathy, although evaluation of the rachna is limited without IV contrast. Residual thymic tissue. The thoracic aorta diameter is normal. The cardiac size is normal. There is no pericardial effusion. The central airways are patent. Lungs are clear. No pleural abnormality. Evaluation of solid abdominal viscera is limited without the use of IV contrast. However, the liver, gallbladder, spleen, pancreas, and adrenal glands are unremarkable. The kidneys are unremarkable. There is no significant mesenteric or retroperitoneal adenopathy identified, though evaluation is limited without intravenous contrast. There is no evidence of free intraperitoneal fluid or pneumoperitoneum. Visualized portions of the bowel are grossly unremarkable. Urinary bladder is well-distended. Uterus is present. There is no significant pelvic ascites. No significant iliac or inguinal adenopathy is identified. No acute osseous abnormality. IMPRESSION: 1. No evidence of major acute thoracic injury. No abdominal solid organ injury. 2. No acute thoracic or lumbar spine fracture. No acute pelvic fracture. Electronically signed by: Robert Pete MD (11/27/2019 10:41 PM) [id number] DICTATED and SIGNED BY: ROBERT PETE MD DATE: 11/27/192240 CT THORACIC SPINE RECONSTRUCT, CT CHEST ABDOMEN PELVIS WO, CT LUMBAR SPINE RECONSTRUCTION INDICATION: Reason: pain, chest, L hip pain after bucked off a horse / Spl. Instructions: / History: COMPARISON: None. TECHNIQUE: Multiple contiguous axial images were obtained throughout the chest, abdomen, and pelvis without the use of IV contrast. Axial images were reformatted into coronal and sagittal planes. Dedicated multiplanar reconstructions of the thoracic and lumbar spine were also obtained. One or more of the following dose reduction techniques were utilized: Automated exposure control (AEC), Adjustment of mA and/or kV according to patient size, Use of iterative reconstruction technique such as ASiR, CT scan done according to ALARA and image gently/image wisely. FINDINGS: The thyroid is symmetric. There is no axillary, mediastinal, or hilar adenopathy, although evaluation of the rachna is limited without IV contrast. Residual thymic tissue. The thoracic aorta diameter is normal. The cardiac size is normal. There is no pericardial effusion. The central airways are patent. Lungs are clear. No pleural abnormality. Evaluation of solid abdominal viscera is limited without the use of IV contrast. However, the liver, gallbladder, spleen, pancreas, and adrenal glands are unremarkable. The kidneys are unremarkable. There is no significant mesenteric or retroperitoneal adenopathy identified, though evaluation is limited without intravenous contrast. There is no evidence of free intraperitoneal fluid or pneumoperitoneum. Visualized portions of the bowel are grossly unremarkable. Urinary bladder is well-distended. Uterus is present. There is no significant pelvic ascites. No significant iliac or inguinal adenopathy is identified. No acute osseous abnormality. IMPRESSION: 1. No evidence of major acute thoracic injury. No abdominal solid organ injury. 2. No acute thoracic or lumbar spine fracture. No acute pelvic fracture. Electronically signed by: Robert Pete MD (11/27/2019 10:41 PM) [id number] CT HEAD AND CERVICAL SPINE WO Date: 11/27/2019 10:06 PM Clinical Indication: pain after bucked off a horse Comparison: None. Technique: 5 mm axial tomographic images were obtained of the head without contrast. These were viewed on brain and bone windows. CT imaging of the cervical spine was performed without contrast. Coronal and sagittal reformatted images were performed. One or more of the following dose reduction techniques were utilized: Automated exposure control (AEC), Adjustment of mA and/or kV according to patient size, Use of iterative reconstruction technique such as ASiR, CT scan done according to ALARA and image gently/image wisely HEAD FINDINGS: The brain parenchyma is normal in attenuation. No intra- or extra-axial mass or fluid collection. No acute hemorrhage. The ventricles are normal in size, shape, and morphology. The gil-white matter junction is normal. The basilar cisterns are patent. The visualized paranasal sinuses are normal. The visualized portions of the orbits and globes are normal. The mastoid air cells are clear. No aggressive osseous lesion or fracture. CERVICAL SPINE FINDINGS: The cervical spine is normally aligned. No acute fracture. No aggressive lytic or blastic osseous lesion. The intervertebral disc heights are maintained. No high-grade spinal canal stenosis or neural foraminal narrowing. The thyroid gland is normal. No cervical lymphadenopathy. The visualized aerodigestive tract is unremarkable. The visualized lung apices are clear. IMPRESSION: 1. No acute intracranial process. 2. No acute osseous abnormality of the cervical spine. Electronically signed by: Robert Pete MD (11/27/2019 10:23 PM) [id number] VTE Prophylaxis Ordered VTE Prophylaxis Devices: Yes VTE Pharmacological Prophylaxi: Yes Assessment/Plan Assessment/Plan Impression: Head injury CONCUSSION MORBID OBESITY Hematuria Intractable nausea and vomiting Fall from horse Tachycardia, resolved ADMITTED neurology consult ok with d/c today off work x several days, return with worsening headache head injury precautions D/W RN SEE PCP THIS WEEK Justicifation of Admission Dx: Justifications for Admission: Justification of Admission Dx: Comment: (OBSERVATION) Comments: ADMITTED FOR CONCUSSION RUBEN CARDOZA MD Nov 28, 2019 10:10
[2019-11-28 11:00] VITALS: BP 105/59
--- NOTE | 2019-11-28 12:40 | NUR ---
SS following for discharge planning. SS reviewed pt chart and discussed with pt RN. Pt is from home with spouse and is currently on room air. SS will continue to follow for discharge planning.
[2019-11-28 15:00] VITALS: BP 106/57
--- NOTE | 2019-11-28 15:09 | PDOC2 ---
NEUROLOGY CONSULT Date of Admission Date of Admission DATE: 11/28/19 TIME: 15:04 Reason for Consult Reason for Consult: Head injury, nausea, vomiting Referring Physician Referring Physician: Dr. Latham Source Source: Caregiver (Mother), Chart review, Patient History of Present Illness History of Present Illness The patient is a 19-year-old right-handed female who was riding her horse. She was thrown forward hitting her head and then thrown backwards off the horse hitting her head. She does not believe she lost consciousness. She did not wear a helmet. In June she fainted during a flu illness and hit her head and was knocked out for a few moments. There is no history of stroke or seizure. She had another head injury a few years ago. She is feeling much better today and wants to go home. 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 Current Medications Current Medications Current Medications Sodium Chloride 1,000 ml @ 1,000 mls/hr 1X ONCE IV Last administered on 11/27/19at 21:28; Start 11/27/19 at 21:15; Stop 11/27/19 at 22:14; Status DC Fentanyl Citrate (Fentanyl 2ml Vial) 50 mcg 1X ONCE IV Last administered on 11/27/19at 21:27; Start 11/27/19 at 21:15; Stop 11/27/19 at 21:36; Status DC Ondansetron HCl (Zofran) 4 mg 1X ONCE IV Last administered on 11/27/19at 21:00; Start 11/27/19 at 21:15; Stop 11/27/19 at 21:36; Status DC Prochlorperazine Edisylate (Compazine) 10 mg 1X ONCE IV Last administered on 11/27/19at 22:22; Start 11/27/19 at 22:30; Stop 11/27/19 at 22:31; Status DC Fentanyl Citrate (Fentanyl 2ml Vial) 50 mcg 1X ONCE IV Last administered on 11/27/19at 22:49; Start 11/27/19 at 23:00; Stop 11/27/19 at 23:01; Status DC Sodium Chloride 500 ml @ 500 mls/hr 1X ONCE IV Last administered on 11/27/19at 23:15; Start 11/27/19 at 23:30; Stop 11/28/19 at 00:29; Status DC Ondansetron HCl (Zofran) 4 mg PRN Q8HRS PRN IV NAUSEA/VOMITING 1ST CHOICE; Start 11/27/19 at 23:30; Stop 11/28/19 at 23:29 Fentanyl Citrate (Fentanyl 2ml Vial) 50 mcg PRN Q1HR PRN IV SEVERE PAIN 7-10; Start 11/27/19 at 23:30; Stop 11/28/19 at 23:29 Sodium Chloride 1,000 ml @ 125 mls/hr Q8H IV Last administered on 11/28/19at 07:45; Start 11/27/19 at 23:45; Stop 11/28/19 at 23:44 Lorazepam (Ativan Inj) 0.5 mg 1X ONCE IV Last administered on 11/27/19at 23:45; Start 11/27/19 at 23:45; Stop 11/27/19 at 23:46; Status DC Lorazepam (Ativan Inj) 0.5 mg 1X ONCE IV Last administered on 11/28/19at 00:11; Start 11/27/19 at 23:45; Stop 11/27/19 at 23:46; Status DC Diphenhydramine HCl (Benadryl) 25 mg 1X ONCE IVP Last administered on 11/28/19at 00:33; Start 11/28/19 at 00:30; Stop 11/28/19 at 00:31; Status DC Sodium Chloride 1,000 ml @ 1,000 mls/hr 1X ONCE IV ; Start 11/28/19 at 00:30; Stop 11/28/19 at 00:25; Status DC Albuterol Sulfate (Ventolin Neb Soln) 2.5 mg PRN Q4HRS PRN CONT NEB wheezing; Start 11/28/19 at 08:30 Citalopram Hydrobromide (CeleXA) 10 mg DAILY PO Last administered on 11/28/19at 09:17; Start 11/28/19 at 09:00 Fluticasone Propionate (Flonase) 2 spray DAILY NS Last administered on 11/28/19at 09:20; Start 11/28/19 at 09:00 Non-Formulary Medication (Noreth A-Et Estra/Fe Fumarate (Junel Fe 1 Mg-20 Mcg Tablet)) 1 tab DAILY PO ; Start 11/28/19 at 09:00; Status UNV Acetaminophen (Tylenol) 650 mg PRN Q6HRS PRN PO MILD PAIN / TEMP > 100.3'F Last administered on 11/28/19at 09:50; Start 11/28/19 at 09:45 Active Scripts Active Reported Proair Hfa Inhaler (Albuterol Sulfate) 8.5 Gm Hfa.aer.ad 2 Puff IH PRN Q4-6HRS PRN 21 Days Flonase Allergy Relief (Fluticasone Propionate) 9.9 Ml [place].susp 2 Sprays NS DAILY Junel Fe 1 Mg-20 Mcg Tablet (Noreth A-Et Estra/Fe Fumarate) 1 Each Tablet 1 Tab PO DAILY Celexa (Citalopram Hydrobromide) 10 Mg Tablet 10 Mg PO DAILY Allergies Allergies: Coded Allergies: iodine (Verified Allergy, Severe, 11/27/19) shellfish derived (Verified Allergy, Severe, 11/27/19) aripiprazole (Verified Allergy, Intermediate, 11/27/19) ROS Review of System Negative for fever, chills, weight loss, shortness of breath, chest pain, indigestion, hematochezia, melena, and dysuria. Full 14-point review of systems is negative. Physical Exam Physical Examination General: Well-developed, well-nourished white female in no acute distress HEENT: Normocephalic andatraumatic. Temporal arteriespulsatile and nontender. Neck: Supple without bruit, no meningismus Musculoskeletal: Stability:see neurologic. Gait exam:see neurologic. Tone:see neurologic.Strength:see neurologic. Neurological: Mental Status:intact, orientation, memory, attention span/concentration, language, fund of knowledge normal. Cranial Nerves:Pupils equal and reactive to light, extraocular movements areintact, visual jo are full to confrontation. Facial sensation is normal. There is no facial asymmetry. Vestibulo-ocular reflex is intact. Palate elevates and tongue protrudes in midline. All other cranial related problems are negative except as mentioned before.Reflexes:2+ and symmetric with flexor plantar responses. Motor:5/5 strength with normal tone and bulk. Coordination:Finger-nose finger and [id number] testing are normal. Rapid alternating movements and fine finger movements are intact. Gait:Normal, including tandem. Sensory:Normal pinprick, vibration, light touch, proprioception. Vitals VITALS Vital Signs Date Time Temp Pulse Resp B/P (MAP) Pulse Ox O2 Delivery O2 Flow Rate FiO2 11/28/19 11:00 98.7 102 105/59 (74) 98 Room Air 98.7 11/28/19 09:53 16 Labs Labs Laboratory Tests Test 11/27/19 21:14 11/27/19 23:00 White Blood Count 11.5 x10^3/uL (4.0-11.0) Red Blood Count 4.53 x10^6/uL (3.50-5.40) Hemoglobin 12.9 g/dL (12.0-15.5) Hematocrit 37.7 % (36.0-47.0) Mean Corpuscular Volume 83 fL (79-100) Mean Corpuscular Hemoglobin 28 pg (25-35) Mean Corpuscular Hemoglobin Concent 34 g/dL (31-37) Red Cell Distribution Width 13.5 % (11.5-14.5) Platelet Count 409 x10^3/uL (140-400) Neutrophils (%) (Auto) 54 % (31-73) Lymphocytes (%) (Auto) 35 % (24-48) Monocytes (%) (Auto) 8 % (0-9) Eosinophils (%) (Auto) 2 % (0-3) Basophils (%) (Auto) 1 % (0-3) Neutrophils # (Auto) 6.2 x10^3/uL (1.8-7.7) Lymphocytes # (Auto) 4.0 x10^3/uL (1.0-4.8) Monocytes # (Auto) 1.0 x10^3/uL (0.0-1.1) Eosinophils # (Auto) 0.2 x10^3/uL (0.0-0.7) Basophils # (Auto) 0.1 x10^3/uL (0.0-0.2) Prothrombin Time 12.5 SEC (11.7-14.0) Prothromb Time International Ratio 1.0 (0.8-1.1) Activated Partial Thromboplast Time 25 SEC (24-38) Sodium Level 139 mmol/L (136-145) Potassium Level 3.9 mmol/L (3.5-5.1) Chloride Level 103 mmol/L (98-107) Carbon Dioxide Level 23 mmol/L (21-32) Anion Gap 13 (6-14) Blood Urea Nitrogen 12 mg/dL (7-20) Creatinine 1.1 mg/dL (0.6-1.0) Estimated GFR (Cockcroft-Gault) 63.3 BUN/Creatinine Ratio 11 (6-20) Glucose Level 93 mg/dL (70-99) Calcium Level 8.8 mg/dL (8.5-10.1) Magnesium Level 2.0 mg/dL (1.8-2.4) Total Bilirubin 0.4 mg/dL (0.2-1.0) Aspartate Amino Transf (AST/SGOT) 38 U/L (15-37) Alanine Aminotransferase (ALT/SGPT) 36 U/L (14-59) Alkaline Phosphatase 83 U/L (46-116) Total Protein 7.2 g/dL (6.4-8.2) Albumin 3.1 g/dL (3.4-5.0) Albumin/Globulin Ratio 0.8 (1.0-1.7) Serum Test, Qualitative Negative (NEG) Urine Collection Type Unknown Urine Color Yellow Urine Clarity Clear Urine pH 6.5 (<5.0-8.0) Urine Specific [place] 1.010 (1.000-1.030) Urine Protein Negative mg/dL (NEG-TRACE) Urine Glucose (UA) Negative mg/dL (NEG) Urine Ketones (Stick) Negative mg/dL (NEG) Urine Blood Large (NEG) Urine Nitrite Negative (NEG) Urine Bilirubin Negative (NEG) Urine Urobilinogen Dipstick 0.2 mg/dL (0.2 mg/dL) Urine Leukocyte Esterase Small (NEG) Urine RBC 20-40 /HPF (0-2) Urine WBC >40 /HPF (0-4) Urine Squamous Epithelial Cells Mod /LPF Urine Bacteria Moderate /HPF (0-FEW) Urine Mucus Slight /LPF Laboratory Tests Test 11/27/19 21:14 11/27/19 23:00 White Blood Count 11.5 x10^3/uL (4.0-11.0) Red Blood Count 4.53 x10^6/uL (3.50-5.40) Hemoglobin 12.9 g/dL (12.0-15.5) Hematocrit 37.7 % (36.0-47.0) Mean Corpuscular Volume 83 fL (79-100) Mean Corpuscular Hemoglobin 28 pg (25-35) Mean Corpuscular Hemoglobin Concent 34 g/dL (31-37) Red Cell Distribution Width 13.5 % (11.5-14.5) Platelet Count 409 x10^3/uL (140-400) Neutrophils (%) (Auto) 54 % (31-73) Lymphocytes (%) (Auto) 35 % (24-48) Monocytes (%) (Auto) 8 % (0-9) Eosinophils (%) (Auto) 2 % (0-3) Basophils (%) (Auto) 1 % (0-3) Neutrophils # (Auto) 6.2 x10^3/uL (1.8-7.7) Lymphocytes # (Auto) 4.0 x10^3/uL (1.0-4.8) Monocytes # (Auto) 1.0 x10^3/uL (0.0-1.1) Eosinophils # (Auto) 0.2 x10^3/uL (0.0-0.7) Basophils # (Auto) 0.1 x10^3/uL (0.0-0.2) Prothrombin Time 12.5 SEC (11.7-14.0) Prothromb Time International Ratio 1.0 (0.8-1.1) Activated Partial Thromboplast Time 25 SEC (24-38) Sodium Level 139 mmol/L (136-145) Potassium Level 3.9 mmol/L (3.5-5.1) Chloride Level 103 mmol/L (98-107) Carbon Dioxide Level 23 mmol/L (21-32) Anion Gap 13 (6-14) Blood Urea Nitrogen 12 mg/dL (7-20) Creatinine 1.1 mg/dL (0.6-1.0) Estimated GFR (Cockcroft-Gault) 63.3 BUN/Creatinine Ratio 11 (6-20) Glucose Level 93 mg/dL (70-99) Calcium Level 8.8 mg/dL (8.5-10.1) Magnesium Level 2.0 mg/dL (1.8-2.4) Total Bilirubin 0.4 mg/dL (0.2-1.0) Aspartate Amino Transf (AST/SGOT) 38 U/L (15-37) Alanine Aminotransferase (ALT/SGPT) 36 U/L (14-59) Alkaline Phosphatase 83 U/L (46-116) Total Protein 7.2 g/dL (6.4-8.2) Albumin 3.1 g/dL (3.4-5.0) Albumin/Globulin Ratio 0.8 (1.0-1.7) Serum Test, Qualitative Negative (NEG) Urine Collection Type Unknown Urine Color Yellow Urine Clarity Clear Urine pH 6.5 (<5.0-8.0) Urine Specific [place] 1.010 (1.000-1.030) Urine Protein Negative mg/dL (NEG-TRACE) Urine Glucose (UA) Negative mg/dL (NEG) Urine Ketones (Stick) Negative mg/dL (NEG) Urine Blood Large (NEG) Urine Nitrite Negative (NEG) Urine Bilirubin Negative (NEG) Urine Urobilinogen Dipstick 0.2 mg/dL (0.2 mg/dL) Urine Leukocyte Esterase Small (NEG) Urine RBC 20-40 /HPF (0-2) Urine WBC >40 /HPF (0-4) Urine Squamous Epithelial Cells Mod /LPF Urine Bacteria Moderate /HPF (0-FEW) Urine Mucus Slight /LPF Images Images CT HEAD AND CERVICAL SPINE WO Date: 11/27/2019 10:06 PM Clinical Indication: pain after bucked off a horse Comparison: None. Technique: 5 mm axial tomographic images were obtained of the head without contrast. These were viewed on brain and bone windows. CT imaging of the cervical spine was performed without contrast. Coronal and sagittal reformatted images were performed. One or more of the following dose reduction techniques were utilized: Automated exposure control (AEC), Adjustment of mA and/or kV according to patient size, Use of iterative reconstruction technique such as ASiR, CT scan done according to ALARA and image gently/image wisely HEAD FINDINGS: The brain parenchyma is normal in attenuation. No intra- or extra-axial mass or fluid collection. No acute hemorrhage. The ventricles are normal in size, shape, and morphology. The gil-white matter junction is normal. The basilar cisterns are patent. The visualized paranasal sinuses are normal. The visualized portions of the orbits and globes are normal. The mastoid air cells are clear. No aggressive osseous lesion or fracture. CERVICAL SPINE FINDINGS: The cervical spine is normally aligned. No acute fracture. No aggressive lytic or blastic osseous lesion. The intervertebral disc heights are maintained. No high-grade spinal canal stenosis or neural foraminal narrowing. The thyroid gland is normal. No cervical lymphadenopathy. The visualized aerodigestive tract is unremarkable. The visualized lung apices are clear. IMPRESSION: 1. No acute intracranial process. 2. No acute osseous abnormality of the cervical spine. CT THORACIC SPINE RECONSTRUCT, CT CHEST ABDOMEN PELVIS WO, CT LUMBAR SPINE RECONSTRUCTION INDICATION: Reason: pain, chest, L hip pain after bucked off a horse / Spl. Instructions: / History: COMPARISON: None. TECHNIQUE: Multiple contiguous axial images were obtained throughout the chest, abdomen, and pelvis without the use of IV contrast. Axial images were reformatted into coronal and sagittal planes. Dedicated multiplanar reconstructions of the thoracic and lumbar spine were also obtained. One or more of the following dose reduction techniques were utilized: Automated exposure control (AEC), Adjustment of mA and/or kV according to patient size, Use of iterative reconstruction technique such as ASiR, CT scan done according to ALARA and image gently/image wisely. FINDINGS: The thyroid is symmetric. There is no axillary, mediastinal, or hilar adenopathy, although evaluation of the rachna is limited without IV contrast. Residual thymic tissue. The thoracic aorta diameter is normal. The cardiac size is normal. There is no pericardial effusion. The central airways are patent. Lungs are clear. No pleural abnormality. Evaluation of solid abdominal viscera is limited without the use of IV contrast. However, the liver, gallbladder, spleen, pancreas, and adrenal glands are unremarkable. The kidneys are unremarkable. There is no significant mesenteric or retroperitoneal adenopathy identified, though evaluation is limited without intravenous contrast. There is no evidence of free intraperitoneal fluid or pneumoperitoneum. Visualized portions of the bowel are grossly unremarkable. Urinary bladder is well-distended. Uterus is present. There is no significant pelvic ascites. No significant iliac or inguinal adenopathy is identified. No acute osseous abnormality. IMPRESSION: 1. No evidence of major acute thoracic injury. No abdominal solid organ injury. 2. No acute thoracic or lumbar spine fracture. No acute pelvic fracture. CT THORACIC SPINE RECONSTRUCT, CT CHEST ABDOMEN PELVIS WO, CT LUMBAR SPINE RECONSTRUCTION INDICATION: Reason: pain, chest, L hip pain after bucked off a horse / Spl. Instructions: / History: COMPARISON: None. TECHNIQUE: Multiple contiguous axial images were obtained throughout the chest, abdomen, and pelvis without the use of IV contrast. Axial images were reformatted into coronal and sagittal planes. Dedicated multiplanar reconstructions of the thoracic and lumbar spine were also obtained. One or more of the following dose reduction techniques were utilized: Automated exposure control (AEC), Adjustment of mA and/or kV according to patient size, Use of iterative reconstruction technique such as ASiR, CT scan done according to ALARA and image gently/image wisely. FINDINGS: The thyroid is symmetric. There is no axillary, mediastinal, or hilar adenopathy, although evaluation of the rachna is limited without IV contrast. Residual thymic tissue. The thoracic aorta diameter is normal. The cardiac size is normal. There is no pericardial effusion. The central airways are patent. Lungs are clear. No pleural abnormality. Evaluation of solid abdominal viscera is limited without the use of IV contrast. However, the liver, gallbladder, spleen, pancreas, and adrenal glands are unremarkable. The kidneys are unremarkable. There is no significant mesenteric or retroperitoneal adenopathy identified, though evaluation is limited without intravenous contrast. There is no evidence of free intraperitoneal fluid or pneumoperitoneum. Visualized portions of the bowel are grossly unremarkable. Urinary bladder is well-distended. Uterus is present. There is no significant pelvic ascites. No significant iliac or inguinal adenopathy is identified. No acute osseous abnormality. IMPRESSION: 1. No evidence of major acute thoracic injury. No abdominal solid organ injury. 2. No acute thoracic or lumbar spine fracture. No acute pelvic fracture. Assessment/Plan Assessment/Plan Impression: Mild concussion, doing well. Worrisome that she has had previous concussions including a recent one 5 months ago, which could predispose her to a more severe postconcussion syndrome. Recommendations: I discussed the nature and symptoms of postconcussion syndrome. No restrictions on activity Follow-up with me in 4-6 weeks if symptoms persist. I advised the patient to wear a helmet Thank you for letting me help with the patient's care. IZA LOCKETT MD Nov 28, 2019 15:09
--- NOTE | 2019-11-28 15:20 | PDOC3 ---
Discharge Summary Date of Admission: Nov 28, 2019 Date of Discharge: Nov 28, 2019 Follow-Up: 3-5 days (SEE PCP THIS WEEK) Admitting Diagnosis comment: DISCHARGE DX ========= Assessment/Plan Impression: Head injury WITH POST-CONCUSSION SYNDROME CONCUSSION MORBID OBESITY Hematuria Intractable nausea and vomiting RESOLVED Fall from horse Tachycardia, resolved ADMITTED neurology consult ok with d/c today off work x several days, return with worsening headache head injury precautions D/W RN SEE PCP THIS WEEK Justicifation of Admission Dx: Justicifation of Admission Dx: Justifications for Admission: Justification of Admission Dx: Comment: (OBSERVATION) Comments: ADMITTED FOR CONCUSSION FINAL DIAGNOSIS Problems Medical Problems: (1) Fall from horse Status: Acute (2) Head injury Status: Acute (3) Hematuria Status: Acute (4) Intractable nausea and vomiting Status: Acute (5) Tachycardia Status: Acute Brief Hospital Course Ms. Crouch is a 19 old [sex] who presented with [FALL, CONCUSSION ] CONDITION AT DISCHARGE: Improved Discharge Medications Current Medications Sodium Chloride 1,000 ml @ 1,000 mls/hr 1X ONCE IV Last administered on 11/27/19at 21:28; Start 11/27/19 at 21:15; Stop 11/27/19 at 22:14; Status DC Fentanyl Citrate (Fentanyl 2ml Vial) 50 mcg 1X ONCE IV Last administered on 11/27/19at 21:27; Start 11/27/19 at 21:15; Stop 11/27/19 at 21:36; Status DC Ondansetron HCl (Zofran) 4 mg 1X ONCE IV Last administered on 11/27/19at 21:00; Start 11/27/19 at 21:15; Stop 11/27/19 at 21:36; Status DC Prochlorperazine Edisylate (Compazine) 10 mg 1X ONCE IV Last administered on 11/27/19at 22:22; Start 11/27/19 at 22:30; Stop 11/27/19 at 22:31; Status DC Fentanyl Citrate (Fentanyl 2ml Vial) 50 mcg 1X ONCE IV Last administered on 11/27/19at 22:49; Start 11/27/19 at 23:00; Stop 11/27/19 at 23:01; Status DC Sodium Chloride 500 ml @ 500 mls/hr 1X ONCE IV Last administered on 11/27/19at 23:15; Start 11/27/19 at 23:30; Stop 11/28/19 at 00:29; Status DC Ondansetron HCl (Zofran) 4 mg PRN Q8HRS PRN IV NAUSEA/VOMITING 1ST CHOICE; Start 11/27/19 at 23:30; Stop 11/28/19 at 23:29 Fentanyl Citrate (Fentanyl 2ml Vial) 50 mcg PRN Q1HR PRN IV SEVERE PAIN 7-10; Start 11/27/19 at 23:30; Stop 11/28/19 at 23:29 Sodium Chloride 1,000 ml @ 125 mls/hr Q8H IV Last administered on 11/28/19at 07:45; Start 11/27/19 at 23:45; Stop 11/28/19 at 23:44 Lorazepam (Ativan Inj) 0.5 mg 1X ONCE IV Last administered on 11/27/19at 23:45; Start 11/27/19 at 23:45; Stop 11/27/19 at 23:46; Status DC Lorazepam (Ativan Inj) 0.5 mg 1X ONCE IV Last administered on 11/28/19at 00:11; Start 11/27/19 at 23:45; Stop 11/27/19 at 23:46; Status DC Diphenhydramine HCl (Benadryl) 25 mg 1X ONCE IVP Last administered on 11/28/19at 00:33; Start 11/28/19 at 00:30; Stop 11/28/19 at 00:31; Status DC Sodium Chloride 1,000 ml @ 1,000 mls/hr 1X ONCE IV ; Start 11/28/19 at 00:30; Stop 11/28/19 at 00:25; Status DC Albuterol Sulfate (Ventolin Neb Soln) 2.5 mg PRN Q4HRS PRN CONT NEB wheezing; Start 11/28/19 at 08:30 Citalopram Hydrobromide (CeleXA) 10 mg DAILY PO Last administered on 11/28/19at 09:17; Start 11/28/19 at 09:00 Fluticasone Propionate (Flonase) 2 spray DAILY NS Last administered on 11/28/19at 09:20; Start 11/28/19 at 09:00 Non-Formulary Medication (Noreth A-Et Estra/Fe Fumarate (Junel Fe 1 Mg-20 Mcg Tablet)) 1 tab DAILY PO ; Start 11/28/19 at 09:00; Status UNV Acetaminophen (Tylenol) 650 mg PRN Q6HRS PRN PO MILD PAIN / TEMP > 100.3'F Last administered on 11/28/19at 09:50; Start 11/28/19 at 09:45 Active Scripts Active Reported Proair Hfa Inhaler (Albuterol Sulfate) 8.5 Gm Hfa.aer.ad 2 Puff IH PRN Q4-6HRS PRN 21 Days Flonase Allergy Relief (Fluticasone Propionate) 9.9 Ml [place].susp 2 Sprays NS DAILY Junel Fe 1 Mg-20 Mcg Tablet (Noreth A-Et Estra/Fe Fumarate) 1 Each Tablet 1 Tab PO DAILY Celexa (Citalopram Hydrobromide) 10 Mg Tablet 10 Mg PO DAILY Vital Signs Vital Signs Date Time Temp Pulse Resp B/P (MAP) Pulse Ox O2 Delivery O2 Flow Rate FiO2 11/28/19 15:00 98.4 122 106/57 (73) 98 Room Air 98.4 11/28/19 09:53 16 Labs Laboratory Tests Test 11/27/19 21:14 11/27/19 23:00 White Blood Count 11.5 x10^3/uL (4.0-11.0) Red Blood Count 4.53 x10^6/uL (3.50-5.40) Hemoglobin 12.9 g/dL (12.0-15.5) Hematocrit 37.7 % (36.0-47.0) Mean Corpuscular Volume 83 fL (79-100) Mean Corpuscular Hemoglobin 28 pg (25-35) Mean Corpuscular Hemoglobin Concent 34 g/dL (31-37) Red Cell Distribution Width 13.5 % (11.5-14.5) Platelet Count 409 x10^3/uL (140-400) Neutrophils (%) (Auto) 54 % (31-73) Lymphocytes (%) (Auto) 35 % (24-48) Monocytes (%) (Auto) 8 % (0-9) Eosinophils (%) (Auto) 2 % (0-3) Basophils (%) (Auto) 1 % (0-3) Neutrophils # (Auto) 6.2 x10^3/uL (1.8-7.7) Lymphocytes # (Auto) 4.0 x10^3/uL (1.0-4.8) Monocytes # (Auto) 1.0 x10^3/uL (0.0-1.1) Eosinophils # (Auto) 0.2 x10^3/uL (0.0-0.7) Basophils # (Auto) 0.1 x10^3/uL (0.0-0.2) Prothrombin Time 12.5 SEC (11.7-14.0) Prothromb Time International Ratio 1.0 (0.8-1.1) Activated Partial Thromboplast Time 25 SEC (24-38) Sodium Level 139 mmol/L (136-145) Potassium Level 3.9 mmol/L (3.5-5.1) Chloride Level 103 mmol/L (98-107) Carbon Dioxide Level 23 mmol/L (21-32) Anion Gap 13 (6-14) Blood Urea Nitrogen 12 mg/dL (7-20) Creatinine 1.1 mg/dL (0.6-1.0) Estimated GFR (Cockcroft-Gault) 63.3 BUN/Creatinine Ratio 11 (6-20) Glucose Level 93 mg/dL (70-99) Calcium Level 8.8 mg/dL (8.5-10.1) Magnesium Level 2.0 mg/dL (1.8-2.4) Total Bilirubin 0.4 mg/dL (0.2-1.0) Aspartate Amino Transf (AST/SGOT) 38 U/L (15-37) Alanine Aminotransferase (ALT/SGPT) 36 U/L (14-59) Alkaline Phosphatase 83 U/L (46-116) Total Protein 7.2 g/dL (6.4-8.2) Albumin 3.1 g/dL (3.4-5.0) Albumin/Globulin Ratio 0.8 (1.0-1.7) Serum Test, Qualitative Negative (NEG) Urine Collection Type Unknown Urine Color Yellow Urine Clarity Clear Urine pH 6.5 (<5.0-8.0) Urine Specific [place] 1.010 (1.000-1.030) Urine Protein Negative mg/dL (NEG-TRACE) Urine Glucose (UA) Negative mg/dL (NEG) Urine Ketones (Stick) Negative mg/dL (NEG) Urine Blood Large (NEG) Urine Nitrite Negative (NEG) Urine Bilirubin Negative (NEG) Urine Urobilinogen Dipstick 0.2 mg/dL (0.2 mg/dL) Urine Leukocyte Esterase Small (NEG) Urine RBC 20-40 /HPF (0-2) Urine WBC >40 /HPF (0-4) Urine Squamous Epithelial Cells Mod /LPF Urine Bacteria Moderate /HPF (0-FEW) Urine Mucus Slight /LPF Laboratory Tests Test 11/27/19 21:14 11/27/19 23:00 White Blood Count 11.5 x10^3/uL (4.0-11.0) Red Blood Count 4.53 x10^6/uL (3.50-5.40) Hemoglobin 12.9 g/dL (12.0-15.5) Hematocrit 37.7 % (36.0-47.0) Mean Corpuscular Volume 83 fL (79-100) Mean Corpuscular Hemoglobin 28 pg (25-35) Mean Corpuscular Hemoglobin Concent 34 g/dL (31-37) Red Cell Distribution Width 13.5 % (11.5-14.5) Platelet Count 409 x10^3/uL (140-400) Neutrophils (%) (Auto) 54 % (31-73) Lymphocytes (%) (Auto) 35 % (24-48) Monocytes (%) (Auto) 8 % (0-9) Eosinophils (%) (Auto) 2 % (0-3) Basophils (%) (Auto) 1 % (0-3) Neutrophils # (Auto) 6.2 x10^3/uL (1.8-7.7) Lymphocytes # (Auto) 4.0 x10^3/uL (1.0-4.8) Monocytes # (Auto) 1.0 x10^3/uL (0.0-1.1) Eosinophils # (Auto) 0.2 x10^3/uL (0.0-0.7) Basophils # (Auto) 0.1 x10^3/uL (0.0-0.2) Prothrombin Time 12.5 SEC (11.7-14.0) Prothromb Time International Ratio 1.0 (0.8-1.1) Activated Partial Thromboplast Time 25 SEC (24-38) Sodium Level 139 mmol/L (136-145) Potassium Level 3.9 mmol/L (3.5-5.1) Chloride Level 103 mmol/L (98-107) Carbon Dioxide Level 23 mmol/L (21-32) Anion Gap 13 (6-14) Blood Urea Nitrogen 12 mg/dL (7-20) Creatinine 1.1 mg/dL (0.6-1.0) Estimated GFR (Cockcroft-Gault) 63.3 BUN/Creatinine Ratio 11 (6-20) Glucose Level 93 mg/dL (70-99) Calcium Level 8.8 mg/dL (8.5-10.1) Magnesium Level 2.0 mg/dL (1.8-2.4) Total Bilirubin 0.4 mg/dL (0.2-1.0) Aspartate Amino Transf (AST/SGOT) 38 U/L (15-37) Alanine Aminotransferase (ALT/SGPT) 36 U/L (14-59) Alkaline Phosphatase 83 U/L (46-116) Total Protein 7.2 g/dL (6.4-8.2) Albumin 3.1 g/dL (3.4-5.0) Albumin/Globulin Ratio 0.8 (1.0-1.7) Serum Test, Qualitative Negative (NEG) Urine Collection Type Unknown Urine Color Yellow Urine Clarity Clear Urine pH 6.5 (<5.0-8.0) Urine Specific [place] 1.010 (1.000-1.030) Urine Protein Negative mg/dL (NEG-TRACE) Urine Glucose (UA) Negative mg/dL (NEG) Urine Ketones (Stick) Negative mg/dL (NEG) Urine Blood Large (NEG) Urine Nitrite Negative (NEG) Urine Bilirubin Negative (NEG) Urine Urobilinogen Dipstick 0.2 mg/dL (0.2 mg/dL) Urine Leukocyte Esterase Small (NEG) Urine RBC 20-40 /HPF (0-2) Urine WBC >40 /HPF (0-4) Urine Squamous Epithelial Cells Mod /LPF Urine Bacteria Moderate /HPF (0-FEW) Urine Mucus Slight /LPF Allergies Allergies Coded Allergies Type Severity Reaction Last Updated Verified iodine Allergy Severe 11/27/19 Yes shellfish derived Allergy Severe 11/27/19 Yes aripiprazole Allergy Intermediate 11/27/19 Yes Disposition/Orders: D/C to Home Justicifation of Admission Dx: Justifications for Admission: Justification of Admission Dx: Comment: (OBSERVATION) RUBEN CARDOZA MD Nov 28, 2019 15:20
[2019-11-28] MEDS ORDERED: ACET325T9 PO (15:22)
--- NOTE | 2019-11-28 15:23 | DISCH ---
DISCHARGE INSTRUCTIONS Condition on Discharge Condition on Discharge: Stable Activity After Discharge Activity Instructions for Disc: Activity as tolerated Lifting Instructions after Dis: No heavy lifting, No pulling or pushing Driving Instructions after Dis: Do not drive today Weight Bearing Status after Di: As tolerated Diet after Discharge Diet after Discharge: Regular Liquid Texture: Thin Liquid Contacting the DR. after DC Call your doctor for: If your condition worsens Treatment/Equipment after DC Adaptive Equipment Issued: None Warfarin Follow-Up Warfarin Follow UP: SEE PCP THIS WEEK RUBEN CARDOZA MD Nov 28, 2019 15:22
--- NOTE | 2019-11-28 16:32 | NUR ---
Discharge Note: ESTELA BENITEZ Discharge instructions and discharge home medications reviewed with Patient and a copy given. All questions have been answered and understanding verbalized. The following instructions and handouts were given: dehydration, concussions Patient discharged to home with spouse via ambulatory.
== END 2019-11-28 16:25 | disposition home or self-care (01) ==
LOC: ER 20:58 → 2 SOUTH 11-28 00:33 → 2 NORTH 11-28 01:58
PROVIDERS: ADMIT Internal Medicine; ATTEND Internal Medicine
DX: S06.0X0A Concussion without loss of consciousness, initial encounter (principal); R11.2 Nausea with vomiting, unspecified; R31.9 Hematuria, unspecified; E66.01 Morbid (severe) obesity due to excess calories; R00.0 Tachycardia, unspecified; J45.909 Unspecified asthma, uncomplicated; Z87.820 Personal history of traumatic brain injury; V80.010A Animal-rider injured by fall from or being thrown from horse in noncollision accident, initial encounter; Y93.52 Activity, horseback riding; Y92.89 Other specified places as the place of occurrence of the external cause; Y99.8 Other external cause status
CPT/HCPCS: 36415; 70450; 71250; 72125; 74176; 80053; 81001; 83735; 84703; 85025; 85610; 85730; 87086; 96361; 96374; 96375; 96376; 99285; G0378; G0379; J0780; J1200; J2060; J2405; J3010; J7030; J7040